=== PATIENT | female | born 1975 | race Hispanic/Latino ===

== ENCOUNTER 2016-10-07 22:27 | Emergency (ER) | payer SELFPAY | END 2016-10-07 23:42 | disposition left against medical advice (07) | LOC: ED 22:27 | DX: R10.9 Unspecified abdominal pain (principal); Z53.21 Procedure and treatment not carried out due to patient leaving prior to being seen by health care provider ==

== ENCOUNTER 2018-03-09 01:27 | Emergency (ER) | payer SELFPAY ==
[2018-03-09] MEDS ORDERED: ZOFRAN IV ONE ×2 (03:15→16:06)
[2018-03-09] MEDS ORDERED: TORADOL IV ONE (03:15)
[2018-03-09] MEDS ORDERED: NACL 0.9% 1000 ML 1,000 ML IV ONE ×2 (10:14→16:06)
--- NOTE | 2018-03-09 10:18 | Emergency Department Report ---
Blank Doc - Documentation Documentation: 43-year-old female with a past medical history of kidney stones requiring stent placement in the past and 2 presents to the hospital complaining of right flank pain sudden onset at 11:00p last night. Pain is sharp, constant, rated 10/10 intensity. Worse with movement and palpation. Associated symptoms nausea vomiting and low-grade fever. Denies dysuria or diarrhea. Patient is currently on menstrual cycle. Pain also greatest in the right lower quadrant. Repeat exam: Right abdominal tenderness greatest in the right lower quadrant UA, urine , CBC, CMP ordered CT abd/pelvis with IV contrast Toradol, Zofran, normal saline via IV Mid-level to follow
--- NOTE | 2018-03-09 10:27 | Emergency Department Report ---
ED Abdominal Pain HPI - General Chief Complaint: Abdominal Pain Stated Complaint: FLANK PAIN Time Seen by Provider: 03/09/18 10:10 Source: patient Mode of arrival: Ambulatory Limitations: No Limitations - History of Present Illness Initial Comments: This is a 43-year-old female nontoxic, well nourished in appearance, no acute signs of distress presents to the ED with c/o of right flank pain that started last night. Patient describes pain as aching/sharp with level of 10/10. Patient stated that history of kidney stone in symptoms are very similar. Patient stated that it is worse upon palpation and movement. Patient associated symptoms includes nausea and vomiting with a low-grade fever. Patient states the pain radiates towards right-sided lower abdomen region. She denies any urinary symptoms. She denies any vaginal discharge vaginal bleeding. Patient today she is currently on her menstrual cycle. Patient denies any chills, headache, stiff neck, numbness, tingling, chest pain or shortness of breathe. Patient denies any allergies. PMH includes kidney stone. MD Complaint: abdominal pain, flank pain -: Last night Location: R flank Radiation: RLQ Migration to: no migration Severity: mild Severity scale (0 -10): 8 Quality: aching, sharp Consistency: constant Improves With: nothing Worsens With: nothing Associated Symptoms: nausea, vomiting, fever, chills. denies: diarrhea, constipation, dysuria, hematemesis, hematochezia, melena, hematuria, anorexia, syncope - Related Data LMP Date: 03/09/18 Previous Rx's Medication Instructions Recorded Last Taken Type Ciprofloxacin HCl [Ciprofloxacin 500 mg PO Q12H #14 tab 04/27/15 Unknown Rx TAB] Ibuprofen [Motrin 800 MG tab] 800 mg PO Q8HR PRN #30 tablet 04/27/15 Unknown Rx Phenazopyridine [Pyridium] 200 mg PO PC #5 tablet 04/27/15 Unknown Rx Ciprofloxacin HCl [Ciprofloxacin 500 mg PO Q12H #14 tab 03/09/18 Unknown Rx TAB] HYDROcodone/APAP 10-325 [[place] 1 each PO Q6HR PRN #15 tablet 03/09/18 Unknown Rx 10/325] Ibuprofen [Motrin] 400 mg PO Q8H PRN #30 tablet 03/09/18 Unknown Rx Ondansetron [Zofran Odt] 4 mg PO Q8HR PRN #20 tab.rapdis 03/09/18 Unknown Rx Tamsulosin HCl [Flomax] 0.4 mg PO DAILY #5 cap.er.24h 03/09/18 Unknown Rx Allergies Allergy/AdvReac Type Severity Reaction Status Date / Time No Known Allergies Allergy Unverified 04/27/15 09:57 ED Review of Systems ROS: Stated complaint: FLANK PAIN Other details as noted in HPI Constitutional: denies: chills, fever Eyes: denies: eye pain, eye discharge, vision change ENT: denies: ear pain, throat pain Respiratory: denies: cough, shortness of breath, wheezing Cardiovascular: denies: chest pain, palpitations Endocrine: no symptoms reported Gastrointestinal: abdominal pain, nausea, vomiting. denies: diarrhea Genitourinary: denies: urgency, dysuria, discharge Musculoskeletal: denies: back pain, joint swelling, arthralgia Skin: denies: rash, lesions Neurological: denies: headache, weakness, paresthesias Psychiatric: denies: anxiety, depression Hematological/Lymphatic: denies: easy bleeding, easy bruising ED Past Medical Hx - Past Medical History Previous Medical History?: Yes Hx Kidney Stones: Yes - Surgical History Past Surgical History?: Yes Additional Surgical History: x 2 - Social History Smoking Status: Never Smoker Substance Use Type: None - Medications Home Medications: Home Medications Medication Instructions Recorded Confirmed Last Taken Type Ciprofloxacin HCl [Ciprofloxacin 500 mg PO Q12H #14 tab 04/27/15 Unknown Rx TAB] Ibuprofen [Motrin 800 MG tab] 800 mg PO Q8HR PRN #30 tablet 04/27/15 Unknown Rx Phenazopyridine [Pyridium] 200 mg PO PC #5 tablet 04/27/15 Unknown Rx Ciprofloxacin HCl [Ciprofloxacin 500 mg PO Q12H #14 tab 03/09/18 Unknown Rx TAB] HYDROcodone/APAP 10-325 [[place] 1 each PO Q6HR PRN #15 tablet 03/09/18 Unknown Rx 10/325] Ibuprofen [Motrin] 400 mg PO Q8H PRN #30 tablet 03/09/18 Unknown Rx Ondansetron [Zofran Odt] 4 mg PO Q8HR PRN #20 tab.rapdis 03/09/18 Unknown Rx Tamsulosin HCl [Flomax] 0.4 mg PO DAILY #5 cap.er.24h 03/09/18 Unknown Rx ED Physical Exam - General Limitations: No Limitations General appearance: alert, in no apparent distress - Head Head exam: Present: atraumatic, normocephalic - Eye Eye exam: Present: normal appearance Pupils: Present: normal accommodation - ENT ENT exam: Present: normal exam, mucous membranes moist - Neck Neck exam: Present: normal inspection, full ROM. Absent: tenderness, meningismus, lymphadenopathy - Respiratory Respiratory exam: Present: normal lung sounds bilaterally. Absent: respiratory distress, wheezes, rales, rhonchi, stridor, chest wall tenderness, accessory muscle use, decreased breath sounds, prolonged expiratory - Cardiovascular Cardiovascular Exam: Present: regular rate, normal rhythm, normal heart sounds. Absent: irregular rhythm, systolic murmur, diastolic murmur, rubs, gallop - GI/Abdominal GI/Abdominal exam: Present: soft, tenderness (RLQ), normal bowel sounds. Absent : distended, guarding, rebound, rigid, diminished bowel sounds - Expanded GI/Abdominal Exam Expanded GI/Abdominal exam: Absent: psoas sign, obturator sign, heel tap sign, Wall's sign, Rovsing's sign, tenderness at [place], ascites - Rectal Rectal exam: Present: deferred - Extremities Exam Extremities exam: Present: normal inspection, full ROM, normal capillary refill - Back Exam Back exam: Present: normal inspection, full ROM, tenderness (right flank region) . Absent: CVA tenderness (R), CVA tenderness (L), muscle spasm, paraspinal tenderness, vertebral tenderness, rash noted - Neurological Exam Neurological exam: Present: alert, oriented X3, normal gait - Psychiatric Psychiatric exam: Present: normal affect, normal mood - Skin Skin exam: Present: warm, dry, intact, normal color. Absent: rash ED Course Vital Signs 03/09/18 03/09/18 03/09/18 02:45 03:12 10:18 Temperature 99.9 F H 99.9 F H 98.8 F Pulse Rate 72 72 99 H Respiratory 16 16 20 Rate Blood Pressure 123/75 123/75 95/50 Blood Pressure [Left] O2 Sat by Pulse 99 99 98 Oximetry 03/09/18 03/09/18 03/09/18 10:24 11:01 16:02 Temperature 100.9 F H Pulse Rate 111 H Respiratory 20 18 20 Rate Blood Pressure Blood Pressure 101/47 [Left] O2 Sat by Pulse Oximetry 03/09/18 03/09/18 03/09/18 16:20 17:28 18:00 Temperature Pulse Rate 72 Respiratory 22 20 18 Rate Blood Pressure Blood Pressure 110/58 [Left] O2 Sat by Pulse 98 Oximetry 03/09/18 18:02 Temperature 98.6 F Pulse Rate Respiratory Rate Blood Pressure Blood Pressure [Left] O2 Sat by Pulse Oximetry - Reevaluation(s) Reevaluation #1: 03/09/18 10:32 Patient is speaking in full sentences with no signs of distress noted. Reevaluation #2: 03/09/18 18:01 Patient is laying comfortably and stated that all symptoms of pain has subsided and she feels much better. - Consultations Consultation #1: 03/09/18 10:32 Patient has been consulted with Dr. Ingram about patient history, physical exam, and labs and examined and screened patient and agrees to ED plan of care. Consultation #2: 03/09/18 16:07 Dr. Javed was consulted from [facility] about past medical history, physical exam, and stated to discharge patient with follow-up in the [facility] ED Medical Decision Making - Lab Data Result diagrams: 03/09/18 10:23 03/09/18 10:23 - Medical Decision Making This is a 43-year-old female that presents with UTI and renal stone with mild mild right hydroureteronephrosis. Patient is stable and was examined by [facility] and Dr. Ingram. PAtient was consulted with Dr. Javed from [facility] and stated she can be discharged with follow-up outpatient. Patient did received 1G of Rocephin in the ED. Patient received normal saline and several rounds of pain medications which patient stated pain has resolved and she feels much better. Patient's vital signs are stable prior to discharge she is afebrile with normal heart rate and normal blood pressure. Patient was challenged by mouth 2 apple juice is a patient well with no nausea or vomiting. Patient was instructed for a follow-up with a urologist in 24 hours or if symptoms worsen and continue to return to emergency room as soon as possible. At time of discharge, the patient does not seem toxic or ill in appearance. No acute signs of distress noted. Patient agrees to discharge treatment plan of care. No further questions noted by the patient. Patients son is at bedside and will drive the patient home after discharge due to possible drowsiness. Critical care attestation.: If time is entered above; I have spent that time in minutes in the direct care of this critically ill patient, excluding procedure time. ED Disposition Clinical Impression: Renal stone, Hydroureteronephrosis UTI (urinary tract infection) Qualifiers: Urinary tract infection type: site unspecified Hematuria presence: with hematuria Qualified Code(s): N39.0 - Urinary tract infection, site not specified ; R31.9 - Hematuria, unspecified Disposition: DC-01 TO HOME OR SELFCARE Is pt being admited?: No Does the pt Need Aspirin: No Condition: Stable Instructions: Kidney Stones (ED) Additional Instructions: Follow-up with a urologist in 24 hours or if symptoms worsen and continue to return to emergency room as soon as possible. Do not operate any machinery after discharge and when your taking [place] due to possible drowsiness. [facility] Address: [address] [place] [address] [address], [place] [address] Prescriptions: Ciprofloxacin HCl [Ciprofloxacin TAB] 500 mg PO Q12H #14 tab HYDROcodone/APAP 10-325 [[place] 10/325] 1 each PO Q6HR PRN #15 tablet PRN Reason: Pain Ibuprofen [Motrin] 400 mg PO Q8H PRN #30 tablet PRN Reason: Pain Ondansetron [Zofran Odt] 4 mg PO Q8HR PRN #20 tab.rapdis PRN Reason: Nausea Tamsulosin HCl [Flomax] 0.4 mg PO DAILY #5 cap.er.24h Referrals: PRIMARY CARE, [Primary Care Provider] - 3-5 Days SHADIA PLAZA MD [Staff Physician] - 3-5 Days KINGS MISHRA MD [Staff Physician] - 3-5 Days [facility] [Outside] - 3-5 Days Forms: Accompanied Note, Work/School Release Form(ED)
[2018-03-09 10:37] LABS: Hematocrit 36.6 % (30.3-42.9); Hemoglobin 12.5 gm/dl (10.1-14.3); Mean Corpuscular HGB Conc 34 % (30-34); Mean Corpuscular Hemoglobin 30 pg (28-32); Mean Corpuscular Volume 89 fl (79-97); Platelet Count 178 K/mm3 (140-440); Red Blood Count 4.13 M/mm3 (3.65-5.03); Red Cell Distribution Width 13.6 % (13.2-15.2)
[2018-03-09] MEDS ORDERED: ZOFRAN ONE (10:55)
[2018-03-09] MEDS ORDERED: TORADOL ONE (10:55)
[2018-03-09 10:57] LABS: Albumin 3.8 g/dL (3.9-5); Calcium 9.4 mg/dL (8.4-10.2)
[2018-03-09 11:20] LABS: Band Neutrophils # (Manual) 1.7 K/mm3; Basophils % (Manual) 0 % (0.0-1.8); Eosinophils % (Manual) 0 % (0.0-4.3); Total Cells Counted 100
[2018-03-09 11:21] LABS: Platelet Estimate Consistent w Auto; RBC Morphology Normal
[2018-03-09 12:28] LABS: Bacteria,Urine 1+ /HPF (Negative); Bilirubin,Urine NEG (Negative); Blood,Urine MOD (Negative); Color,Urine Yellow (Yellow); Mucus,Urine FEW /HPF; Urobilinogen,Urine < 2.0 mg/dL (<2.0)
[2018-03-09] MEDS ORDERED: ROCEPHIN/NS 1 GM/50 ML 1 GM/50 ML BAG IV ONE (12:43)
--- NOTE | 2018-03-09 12:44 | Cat Scan Report ---
CT ABDOMEN AND PELVIS WITHOUT CONTRAST INDICATION: RLQ, right flank pain. Nausea, vomiting. History of kidney stone. COMPARISON: 05/03/2015 CT. FINDINGS: Noncontrast abdomen and pelvis CT performed. LUNG BASES: Approximately 7.5 x 5.5 cm left distal paraesophageal herniated fat again noted about the GE junction as on axial image 25, series 2. Slight right basilar scarring or atelectasis. Nonspecific distal esophageal wall prominence/thickening, not excluded for gastroesophageal reflux and/or hiatal hernia, amongst others. ABDOMEN: Please note that sensitivity to detect small visceral lesions is limited due to the absence of intravenous or oral contrast. A 4 cm peripherally calcified gallstone again noted. Interval resolution of left hydronephrosis with passage of 7-8 mm left UVJ stone. However, a 2-3 mm nonobstructing left lower renal pole calculus is new, axial image 96, series 2. Mild right perinephric stranding and mild right hydroureteronephrosis is also new. Stable liver with hypoplastic left lobe. Grossly unremarkable spleen, adrenals, aorta and IVC. Nonopacified GI tract evaluation limited, though grossly nonobstructive. A normal appendix noted in the midline, axial images 130-147, series 2. Small fat-containing umbilical hernia hernia with a transverse neck of 0.7 cm again seen. No ascites or definite significant adenopathy. PELVIS: Uterus, adnexa/ovaries, urinary bladder and rectosigmoid within normal limits. A 4-5 mm right distal ureteral calculus is new, axial image 178, series 2, located approximately 1 cm proximal to its bladder base insertion. Right L5 transverse process sacralization and possible pseudoarthrosis again noted as also mild lower thoracic spine degenerative spurring. CONCLUSION: 1. New mild right hydroureteronephrosis secondary to a 4 mm right distal ureteral calculus, as described. No additional radiopaque right intrarenal calculi. 2. Interval resolution of left hydroureteronephrosis with passage of left ureterovesical junction calculus. A small nonobstructing left lower renal pole calculus now identified, as described. 3. Various other incidental findings as cholelithiasis, amongst others, as above. Thank you for the opportunity to participate in this patient's care.
[2018-03-09] MEDS ORDERED: cefTRIAXone 1 GM in NACL 0.9% 20 ML IV ONE (13:30)
[2018-03-09] MEDS ORDERED: MORPHINE IV ONE (16:03)
[2018-03-09] MEDS ORDERED: DILAUDID IV ONE ×2 (16:03→17:12)
[2018-03-09] MEDS ORDERED: TYLENOL PO ONE (16:06)
[2018-03-09 18:02] VITALS: BP 110/58
== END 2018-03-09 18:48 | disposition home or self-care (01) ==
LOC: ED 01:27
DX: N39.0 Urinary tract infection, site not specified (principal); N13.2 Hydronephrosis with renal and ureteral calculous obstruction
CPT/HCPCS: 36415; 74176; 80053; 81001; 84703; 85007; 85025; 96361; 96365; 96375; 96376; 99284; J0696; J1170; J1885; J2405; J7030

== ENCOUNTER 2020-05-08 19:49 | Emergency (ER) | payer MEDICAID ==
[2020-05-08 20:13] VITALS: BP 138/80
[2020-05-08] MEDS ORDERED: methylPREDNISolone Sod Succinate 125 MG/2 ML INJ IV ONE (20:41)
--- NOTE | 2020-05-08 20:42 | Emergency Department Report ---
ED Allergic Reaction HPI - General Chief complaint: Extremity Injury, Lower Stated complaint: ALLERGIC REACTION Time Seen by Provider: 05/08/20 20:36 Source: EMS Mode of arrival: Stretcher Limitations: Language Barrier - History of Present Illness Initial Comments: Patient is a 45-year-old female that presents emergency room for a bee sting and allergic reaction. Patient states that she was brought in by EMS because she was scared that she was going to have difficulty breathing. Patient denies any difficulty breathing or shortness of breath. Patient states she was given 25 mg IV of Benadryl by EMS. Patient states that the last time she was stung was when she was 13 years old and she had anaphylactic reaction and required epinephrine. Patient states she has not had to use an EpiPen for many years. Patient denies shortness of breath. Patient denies difficulty breathing. Patient denies difficulty swallowing. Patient states she was stung on the top of her right foot. Patient states it happened approximately 1.5 hours ago. Patient states she has some redness to the area. Patient is complaining of mild right foot pain. Patient states the pain is improving with time. Patient states there is a small amount of redness. Patient denies chest pain. Patient denies fever and chills. Patient denies cough. Patient denies recent travel. Patient denies recent international travel. Patient denies exposure to the novel coronavirus. Patient denies sick contacts. Patient denies fever and chills. Patient denies cough. Patient denies diarrhea. Patient denies coming in contact with anybody with symptoms of the novel coronavirus. MD Complaint: allergic reaction -: Sudden Symptoms: itching. denies: rash, facial swelling, lip swelling, difficulty swallowing, difficulty breathing, orolingual swelling, hoarseness, syncopy, dizziness, nausea, vomiting, abdominal pain Severity: mild Treatment Prior to Arrival: benadryl, other (EMS transport and IV) Previous Allergy History: prior ED visit(s), anaphylaxis - Related Data Previous Rx's Medication Instructions Recorded Last Taken Type Ciprofloxacin HCl [Ciprofloxacin 500 mg PO Q12H #14 tab 04/27/15 Unknown Rx TAB] Ibuprofen [Motrin 800 MG tab] 800 mg PO Q8HR PRN #30 tablet 04/27/15 Unknown Rx Phenazopyridine [Pyridium] 200 mg PO PC #5 tablet 07/25/15 Unknown Rx Ciprofloxacin HCl [Ciprofloxacin 500 mg PO Q12H #14 tab 03/09/18 Unknown Rx TAB] HYDROcodone/APAP 10-325 [[place] 1 each PO Q6HR PRN #15 tablet 03/09/18 Unknown Rx 10/325] Ibuprofen [Motrin] 400 mg PO Q8H PRN #30 tablet 03/09/18 Unknown Rx Ondansetron [Zofran Odt] 4 mg PO Q8HR PRN #20 tab.rapdis 03/09/18 Unknown Rx Tamsulosin HCl [Flomax] 0.4 mg PO DAILY #5 cap.er.24h 03/09/18 Unknown Rx dexAMETHasone [Taperdex] 1.5 mg PO DAILY 7 Days #1 tab.ds.pk 05/08/20 Unknown Rx Allergies Allergy/AdvReac Type Severity Reaction Status Date / Time No Known Allergies Allergy Unverified 04/27/15 09:57 ED Review of Systems ROS: Stated complaint: ALLERGIC REACTION Other details as noted in HPI Constitutional: denies: chills, fever Eyes: denies: eye pain, eye discharge, vision change ENT: denies: ear pain, throat pain Respiratory: denies: cough, shortness of breath, wheezing Cardiovascular: denies: chest pain, palpitations Endocrine: no symptoms reported Gastrointestinal: denies: abdominal pain, nausea, diarrhea Genitourinary: denies: urgency, dysuria, discharge Musculoskeletal: denies: back pain, joint swelling, arthralgia Skin: as per HPI. denies: rash, lesions Neurological: denies: headache, weakness, paresthesias Psychiatric: denies: anxiety, depression Hematological/Lymphatic: denies: easy bleeding, easy bruising ED Past Medical Hx - Past Medical History Previous Medical History?: Yes Hx Kidney Stones: Yes - Surgical History Past Surgical History?: Yes Additional Surgical History: x 2 - Family History Family history: no significant - Social History Smoking Status: Never Smoker Substance Use Type: None - Medications Home Medications: Home Medications Medication Instructions Recorded Confirmed Last Taken Type Ciprofloxacin HCl [Ciprofloxacin 500 mg PO Q12H #14 tab 04/27/15 Unknown Rx TAB] Ibuprofen [Motrin 800 MG tab] 800 mg PO Q8HR PRN #30 tablet 04/27/15 Unknown Rx Phenazopyridine [Pyridium] 200 mg PO PC #5 tablet 04/27/15 Unknown Rx Ciprofloxacin HCl [Ciprofloxacin 500 mg PO Q12H #14 tab 03/09/18 Unknown Rx TAB] HYDROcodone/APAP 10-325 [[place] 1 each PO Q6HR PRN #15 tablet 03/09/18 Unknown Rx 10/325] Ibuprofen [Motrin] 400 mg PO Q8H PRN #30 tablet 03/09/18 Unknown Rx Ondansetron [Zofran Odt] 4 mg PO Q8HR PRN #20 tab.rapdis 03/09/18 Unknown Rx Tamsulosin HCl [Flomax] 0.4 mg PO DAILY #5 cap.er.24h 03/09/18 Unknown Rx dexAMETHasone [Taperdex] 1.5 mg PO DAILY 7 Days #1 tab.ds.pk 05/08/20 Unknown Rx ED Physical Exam - General Limitations: Language Barrier General appearance: alert, in no apparent distress - Head Head exam: Present: atraumatic, normocephalic - Eye Eye exam: Present: normal appearance - ENT ENT exam: Present: mucous membranes moist - Neck Neck exam: Present: normal inspection - Respiratory Respiratory exam: Present: normal lung sounds bilaterally. Absent: respiratory distress - Cardiovascular Cardiovascular Exam: Present: regular rate, normal rhythm. Absent: systolic murmur, diastolic murmur, rubs, gallop - GI/Abdominal GI/Abdominal exam: Present: soft, normal bowel sounds - Extremities Exam Extremities exam: Present: normal inspection - Back Exam Back exam: Present: normal inspection - Neurological Exam Neurological exam: Present: alert, oriented X3 - Psychiatric Psychiatric exam: Present: normal affect, normal mood - Skin Skin exam: Present: warm, dry, intact, normal color. Absent: rash ED Course Vital Signs 05/08/20 20:11 Temperature 98.7 F Pulse Rate 86 Respiratory 19 Rate Blood Pressure 138/80 Blood Pressure 138/80 [Right] O2 Sat by Pulse 97 Oximetry - Reevaluation(s) Reevaluation #1: Patient states her symptoms have resolved. Patient states she is feeling much better. Patient states she has an EpiPen at home. I discussed all results and clinical findings with patient. I discussed plan of care with patient. Patient agrees with plan of care. Patient is stable for discharge. Patient will be discharged home. Patient given discharge instructions. Patient voiced understanding of discharge instructions. 05/08/20 22:50 ED Medical Decision Making - Medical Decision Making Patient is a 45-year-old female that presents emergency room with complaints of a bee sting to the right foot. 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 Patient was brought in by EMS and given IV Benadryl in route. Patient was essentially asymptomatic except for slight redness to her right foot and right foot pain. Patient was given Solu-Medrol in the ER and responded well. Patient was essentially asymptomatic at discharge. Patient will be given a steroid pack upon discharge to start tomorrow. Patient given discharge instructions. Patient not require further emergency services. Patient is stable for discharge. - Differential Diagnosis Allergic reaction, bee sting, rash Critical care attestation.: If time is entered above; I have spent that time in minutes in the direct care of this critically ill patient, excluding procedure time. ED Disposition Clinical Impression: History of anaphylaxis, Rash Bee sting Qualifiers: Encounter type: initial encounter Injury intent: accidental or unintentional Qualified Code(s): T63.441A - Toxic effect of venom of bees, accidental (unintentional), initial encounter Allergic reaction Qualifiers: Encounter type: initial encounter Qualified Code(s): T78.40XA - Allergy, unspecified, initial encounter Disposition: DC- TO HOME OR SELFCARE Is pt being admited?: No Does the pt Need Aspirin: No Condition: Stable Instructions: Urticaria (ED), Insect Bite or Sting (ED), Allergies (ED) Additional Instructions: Patient to follow-up with primary care in 2 to 3 days. Patient to follow-up with end packer in 2 to 3 days. Patient to rest. Patient to increase water. Patient to avoid strenuous exercise or heavy lifting until cleared by primary care and end packer.. Patient to take Tylenol or ibuprofen as needed for pain. Patient to take meds as directed. Patient to return to the ER if condition worsens, changes or new symptoms arise. Prescriptions: dexAMETHasone [Taperdex] 1.5 mg PO DAILY 7 Days #1 tab.ds.pk Referrals: HEATHER ASHER MD [Primary Care Provider] - 2-3 Days JL SCHWARZ MD [Referring] - 2-3 Days Time of Disposition: 22:58
== END 2020-05-08 23:10 | disposition home or self-care (01) ==
LOC: ED 19:49
DX: T63.441A Toxic effect of venom of bees, accidental (unintentional), initial encounter (principal); L25.8 Unspecified contact dermatitis due to other agents; Z87.892 Personal history of anaphylaxis; Z87.442 Personal history of urinary calculi; Z98.890 Other specified postprocedural states; Z79.1 Long term (current) use of non-steroidal anti-inflammatories (NSAID); Z79.2 Long term (current) use of antibiotics; Z79.899 Other long term (current) drug therapy; Y92.89 Other specified places as the place of occurrence of the external cause
CPT/HCPCS: 96374; 99283; J2930